=== PATIENT | female | born 1940 | race Caucasian/White ===

== ENCOUNTER 2017-09-07 12:24 | Inpatient (IN) | payer OTHER, MEDICAID ==
[2017-09-07] VITALS (8 sets, daily range): BP systolic 88–175; BP diastolic 54–116
[~2017-09-07] VITALS: Ht 149.9 cm; Wt 106.1 kg
[2017-09-07 13:30] LABS: BASOPHIL % 0.3 % (0-2); PLATELET COUNT 229 x10^3mcL (130-400); RED CELL DISTRIBUTION WIDTH 15.2 % (11.5-14.5)
[2017-09-07 13:44] LABS: UA SPECIFIC GRAVITY 1.025 (1.005-1.035); microscopic required? YES; urine erythrocyte 2+ (NEGATIVE)
[2017-09-07 13:44] LABS: CALCIUM 8.7 mg/dL (8.5-10.1); CARBON DIOXIDE 29.7 mmol/L (21-32); CHLORIDE SERUM 103 mmol/L (98-107); GLUCOSE SERUM 192 mg/dL (74-106); POTASSIUM SERUM 3.8 mmol/L (3.5-5.1); SODIUM SERUM 142 mmol/L (136-145)
[2017-09-07 13:49] LABS: ALBUMIN 3.7 g/dL (3.4-5.0); ALKALINE PHOSPHATASE 101 U/L (46-116); ALT/SGPT 50 U/L (14-59); AST/SGOT 38 U/L (15-37); TOTAL PROTEIN, SERUM 7.5 g/dL (6.4-8.2)
[2017-09-07] MEDS ORDERED: GOOD SENSE ASPI81 M3 PO (13:50)
[2017-09-07] MEDS ORDERED: LEXAPRO20 MG PO (13:50)
[2017-09-07] MEDS ORDERED: LOSARTAN POTASS50 M1 PO (13:50)
[2017-09-07] MEDS ORDERED: COMPLEX B1001 TER PO (13:51)
[2017-09-07] MEDS ORDERED: CILOSTAZOL100 M1 PO (13:51)
[2017-09-07] MEDS ORDERED: LIPITOR40 MG PO (13:52)
[2017-09-07] MEDS ORDERED: CALCIUM (13:52)
[2017-09-07] MEDS ORDERED: DONEPEZIL HYDRO10 M2 PO (13:52)
[2017-09-07] MEDS ORDERED: FISH OIL + D31 EACH PO (13:52)
[2017-09-07] MEDS ORDERED: RANITIDINE HCL300 MG PO (13:53)
[2017-09-07] MEDS ORDERED: TRAZODONE50 M1 PO (13:53)
[2017-09-07] MEDS ORDERED: ATENOLOL50 MG PO (13:53)
[2017-09-07 15:56] LABS: MAGNESIUM 2.1 mg/dL (1.8-2.4); PHOSPHOROUS 5.2 mg/dL (2.5-4.9)
[2017-09-07 16:32] LABS: CHOLESTEROL/HDL RATIO 2.3
[2017-09-08] VITALS (15 sets, daily range): BP systolic 63–123; BP diastolic 22–84
[2017-09-08 05:21] LABS: BASOPHIL % 0.4 % (0-2); PLATELET COUNT 190 x10^3mcL (130-400)
[2017-09-08 05:44] LABS: RED CELL DISTRIBUTION WIDTH 15.6 % (11.5-14.5)
[2017-09-08 06:20] LABS: CALCIUM 8.1 mg/dL (8.5-10.1); CARBON DIOXIDE 26.3 mmol/L (21-32); CHLORIDE SERUM 105 mmol/L (98-107); CREATININE SERUM 1.3 mg/dL (0.6-1.0); GLUCOSE SERUM 134 mg/dL (74-106); MAGNESIUM 1.7 mg/dL (1.8-2.4); PHOSPHOROUS 4.2 mg/dL (2.5-4.9); POTASSIUM SERUM 3.8 mmol/L (3.5-5.1); SODIUM SERUM 141 mmol/L (136-145)
[2017-09-08 06:27] LABS: T3 TOTAL 1.04 ng/mL
[2017-09-08 06:32] LABS: FREE T4 1.15 ng/dL (0.76-1.46); FREE THYROXINE INDEX 3.2 ug/dL (1.4-4.5); T4(THYROXINE) 8.7 ug/dL (4.7-13.3)
[2017-09-09] VITALS (22 sets, daily range): BP systolic 99–152; BP diastolic 56–88
[2017-09-09 05:40] LABS: PLATELET COUNT 172 x10^3mcL (130-400)
[2017-09-09 05:55] LABS: CALCIUM 8.6 mg/dL (8.5-10.1); CARBON DIOXIDE 23.7 mmol/L (21-32); CHLORIDE SERUM 105 mmol/L (98-107); CREATININE SERUM 1.2 mg/dL (0.6-1.0); GLUCOSE SERUM 211 mg/dL (74-106); MAGNESIUM 2.3 mg/dL (1.8-2.4); PHOSPHOROUS 3.3 mg/dL (2.5-4.9); POTASSIUM SERUM 3.5 mmol/L (3.5-5.1); SODIUM SERUM 139 mmol/L (136-145)
[2017-09-09 06:07] LABS: BASOPHIL % 0 % (0-2); RED CELL DISTRIBUTION WIDTH 15.4 % (11.5-14.5)
[2017-09-10] VITALS (15 sets, daily range): BP systolic 97–160; BP diastolic 59–100
[2017-09-10 06:06] LABS: BASOPHIL % 0.3 % (0-2); PLATELET COUNT 190 x10^3mcL (130-400)
[2017-09-10 06:10] LABS: CALCIUM 8.3 mg/dL (8.5-10.1); CARBON DIOXIDE 29.4 mmol/L (21-32); CHLORIDE SERUM 108 mmol/L (98-107); GLUCOSE SERUM 194 mg/dL (74-106); MAGNESIUM 2.3 mg/dL (1.8-2.4); PHOSPHOROUS 2.6 mg/dL (2.5-4.9); SODIUM SERUM 143 mmol/L (136-145)
[2017-09-10 06:13] LABS: RED CELL DISTRIBUTION WIDTH 15.6 % (11.5-14.5)
[2017-09-11] VITALS (12 sets, daily range): BP systolic 107–152; BP diastolic 63–90; Ht 149.9 cm; Wt 106.1 kg
[2017-09-11 05:56] LABS: BASOPHIL % 0.3 % (0-2); PLATELET COUNT 205 x10^3mcL (130-400)
[2017-09-11 05:57] LABS: RED CELL DISTRIBUTION WIDTH 15.6 % (11.5-14.5)
[2017-09-11 06:13] LABS: CALCIUM 8.3 mg/dL (8.5-10.1); CARBON DIOXIDE 29.2 mmol/L (21-32); CHLORIDE SERUM 110 mmol/L (98-107); CREATININE SERUM 0.8 mg/dL (0.6-1.0); GLUCOSE SERUM 120 mg/dL (74-106); MAGNESIUM 2.3 mg/dL (1.8-2.4); PHOSPHOROUS 3.5 mg/dL (2.5-4.9); POTASSIUM SERUM 4.4 mmol/L (3.5-5.1); SODIUM SERUM 144 mmol/L (136-145)
[2017-09-12 06:31] VITALS: BP 136/72
[2017-09-12 06:31] LABS: BASOPHIL % 0.2 % (0-2); PLATELET COUNT 186 x10^3mcL (130-400)
[2017-09-12 06:34] LABS: CALCIUM 7.9 mg/dL (8.5-10.1); CARBON DIOXIDE 33.4 mmol/L (21-32); CHLORIDE SERUM 107 mmol/L (98-107); CREATININE SERUM 0.9 mg/dL (0.6-1.0); GLUCOSE SERUM 126 mg/dL (74-106); MAGNESIUM 2.6 mg/dL (1.8-2.4); PHOSPHOROUS 3.3 mg/dL (2.5-4.9); POTASSIUM SERUM 4.3 mmol/L (3.5-5.1); SODIUM SERUM 143 mmol/L (136-145)
[2017-09-12 06:56] LABS: RED CELL DISTRIBUTION WIDTH 15.4 % (11.5-14.5)
[2017-09-12 09:44] VITALS: BP 139/78
[2017-09-12 12:40] VITALS: BP 146/73
[2017-09-12 17:40] VITALS: BP 138/81
[2017-09-12 20:10] VITALS: BP 122/65
[2017-09-13 04:10] VITALS: BP 149/85
[2017-09-13 08:31] LABS: BASOPHIL % 0.2 % (0-2); PLATELET COUNT 202 x10^3mcL (130-400)
[2017-09-13 08:35] LABS: RED CELL DISTRIBUTION WIDTH 15.3 % (11.5-14.5)
[2017-09-13 08:48] LABS: CARBON DIOXIDE 33.1 mmol/L (21-32); CHLORIDE SERUM 104 mmol/L (98-107); CREATININE SERUM 0.9 mg/dL (0.6-1.0); GLUCOSE SERUM 145 mg/dL (74-106); MAGNESIUM 2.5 mg/dL (1.8-2.4); POTASSIUM SERUM 4.6 mmol/L (3.5-5.1); SODIUM SERUM 141 mmol/L (136-145)
[2017-09-13 10:20] VITALS: BP 117/62
[2017-09-13 14:11] VITALS: BP 125/76
[2017-09-13] MEDS ORDERED: LAC PO (14:13)
[2017-09-13 14:46] VITALS: BP 125/76
[2017-09-13 17:15] VITALS: BP 119/69
[2017-09-13 20:52] VITALS: BP 132/83
[2017-09-14 04:55] VITALS: BP 139/79
[2017-09-14 07:32] LABS: CARBON DIOXIDE 33.6 mmol/L (21-32); CHLORIDE SERUM 105 mmol/L (98-107); CREATININE SERUM 0.9 mg/dL (0.6-1.0); GLUCOSE SERUM 132 mg/dL (74-106); POTASSIUM SERUM 4.4 mmol/L (3.5-5.1); SODIUM SERUM 142 mmol/L (136-145)
[2017-09-14 07:34] LABS: BASOPHIL % 0.5 % (0-2); PLATELET COUNT 193 x10^3mcL (130-400)
[2017-09-14 07:42] LABS: RED CELL DISTRIBUTION WIDTH 15.3 % (11.5-14.5)
[2017-09-14 09:53] VITALS: BP 144/84
[2017-09-14 16:50] VITALS: BP 98/68
[2017-09-14 21:48] VITALS: BP 153/88
[2017-09-15 04:40] VITALS: BP 139/87
[2017-09-15 07:57] LABS: PLATELET COUNT 202 x10^3mcL (130-400)
[2017-09-15 08:18] LABS: CALCIUM 7.9 mg/dL (8.5-10.1); CARBON DIOXIDE 34.8 mmol/L (21-32); CHLORIDE SERUM 102 mmol/L (98-107); CREATININE SERUM 0.8 mg/dL (0.6-1.0); GLUCOSE SERUM 114 mg/dL (74-106); POTASSIUM SERUM 4.4 mmol/L (3.5-5.1); SODIUM SERUM 136 mmol/L (136-145)
[2017-09-15 08:19] LABS: BASOPHIL % 0 % (0-2)
[2017-09-15 10:02] VITALS: BP 123/72
[2017-09-15 18:24] VITALS: BP 123/70
[2017-09-15 21:02] VITALS: BP 130/66
[2017-09-16 05:27] VITALS: BP 124/75
[2017-09-16 06:33] LABS: PLATELET COUNT 205 x10^3mcL (130-400); RED CELL DISTRIBUTION WIDTH 14.1 % (11.5-14.5)
[2017-09-16 06:47] LABS: CALCIUM 7.7 mg/dL (8.5-10.1); CARBON DIOXIDE 32.9 mmol/L (21-32); CHLORIDE SERUM 103 mmol/L (98-107); CREATININE SERUM 0.9 mg/dL (0.6-1.0); GLUCOSE SERUM 134 mg/dL (74-106); MAGNESIUM 2.2 mg/dL (1.8-2.4); PHOSPHOROUS 4.1 mg/dL (2.5-4.9); POTASSIUM SERUM 4.6 mmol/L (3.5-5.1); SODIUM SERUM 141 mmol/L (136-145)
[2017-09-16 09:28] VITALS: BP 124/62
[2017-09-16 17:22] VITALS: BP 109/51
[2017-09-16 21:55] VITALS: BP 125/65
[2017-09-17 05:57] VITALS: BP 120/62
[2017-09-17 07:21] LABS: BASOPHIL % 0.4 % (0-2); PLATELET COUNT 225 x10^3mcL (130-400)
[2017-09-17 07:30] LABS: CALCIUM 8.4 mg/dL (8.5-10.1); CHLORIDE SERUM 102 mmol/L (98-107); CREATININE SERUM 0.9 mg/dL (0.6-1.0); GLUCOSE SERUM 134 mg/dL (74-106); MAGNESIUM 2.3 mg/dL (1.8-2.4); PHOSPHOROUS 4.1 mg/dL (2.5-4.9); POTASSIUM SERUM 4.5 mmol/L (3.5-5.1); SODIUM SERUM 140 mmol/L (136-145)
[2017-09-17 09:58] VITALS: BP 97/61
[2017-09-17 17:58] VITALS: BP 100/57
[2017-09-17 20:56] VITALS: BP 99/56
[2017-09-18 05:54] VITALS: BP 108/69
[2017-09-18 06:27] LABS: CALCIUM 8.4 mg/dL (8.5-10.1); CARBON DIOXIDE 33.9 mmol/L (21-32); CHLORIDE SERUM 100 mmol/L (98-107); GLUCOSE SERUM 150 mg/dL (74-106); PHOSPHOROUS 4.5 mg/dL (2.5-4.9); PLATELET COUNT 211 x10^3mcL (130-400); POTASSIUM SERUM 4.3 mmol/L (3.5-5.1); SODIUM SERUM 141 mmol/L (136-145)
[2017-09-18 06:30] LABS: BASOPHIL % 0 % (0-2); RED CELL DISTRIBUTION WIDTH 15.4 % (11.5-14.5)
[2017-09-18 09:00] VITALS: BP 144/77
[2017-09-18] MEDS ORDERED: VENTOLIN H0.09 MG/A1 INH (10:37)
[2017-09-18] MEDS ORDERED: FUROSEMIDE20 MG PO (10:37)
[2017-09-18] MEDS ORDERED: OSCD PO (10:37)
[2017-09-18 14:35] VITALS: BP 125/76
[2017-09-18 14:36] VITALS: BP 125/76
== END 2017-09-18 16:27 | disposition home health service (06) | DRG 208 ==
LOC: ED 12:24 → IC 14:35 → DU 09-11 17:22 → MU 09-14 07:46
PROVIDERS: Emergency Medicine; Family Medicine; Student in an Organized Health Care Education/Training Program
PROC: 5A1945Z Respiratory Ventilation, 24-96 Consecutive Hours (ICD-10-PCS; principal; 2017-09-07)
PROC: 0BH17EZ Insertion of Endotracheal Airway into Trachea, Via Natural or Artificial Opening (ICD-10-PCS; 2017-09-07)
PROC: 05HM33Z Insertion of Infusion Device into Right Internal Jugular Vein, Percutaneous Approach (ICD-10-PCS; 2017-09-07)
DX: J96.01 Acute respiratory failure with hypoxia (principal); J69.0 Pneumonitis due to inhalation of food and vomit; G93.41 Metabolic encephalopathy; N17.0 Acute kidney failure with tubular necrosis; N39.0 Urinary tract infection, site not specified; Z68.42 Body mass index [BMI] 45.0-49.9, adult; I11.9 Hypertensive heart disease without heart failure; K21.9 Gastro-esophageal reflux disease without esophagitis; G47.30 Sleep apnea, unspecified; R31.29 Other microscopic hematuria; J44.9 Chronic obstructive pulmonary disease, unspecified; E83.51 Hypocalcemia; E83.41 Hypermagnesemia; R73.03 Prediabetes; R80.9 Proteinuria, unspecified; D64.9 Anemia, unspecified; E66.01 Morbid (severe) obesity due to excess calories; Z85.42 Personal history of malignant neoplasm of other parts of uterus; Z90.710 Acquired absence of both cervix and uterus
CPT/HCPCS: 31500; 36556; 36600; 83880; 84439; 87804; 97110-GP; 97116-GP; 97530-GP; A4628; C9113; J1200; J1642; J1644; J1940; J1956; J2001; J2250; J2270; J2405; J2543; J2704; J2920; J3010; J3370; J3475; J3490; J7030; J7040; J7620; J7633; Q0092

== ENCOUNTER 2019-11-01 16:34 | Emergency (ER) | payer OTHER, MEDICAID ==
[~2019-11-01] VITALS: Ht 144.8 cm; Wt 98.4 kg
[~2019-11-01 16:34] MED LIST: ATENOLOL50 MG PO; CALCIUM; CILOSTAZOL100 M1 PO; COMPLEX B1001 TER PO; DONEPEZIL HYDRO10 M2 PO; FISH OIL + D31 EACH PO; FUROSEMIDE20 MG PO; GOOD SENSE ASPI81 M3 PO; LAC PO; LEXAPRO20 MG PO; LIPITOR40 MG PO; LOSARTAN POTASS50 M1 PO; OSCD PO; RANITIDINE HCL300 MG PO; TRAZODONE50 M1 PO; VENTOLIN H0.09 MG/A1 INH
[2019-11-01 18:17] VITALS: BP 145/66
== END 2019-11-01 18:17 | disposition home or self-care (01) ==
LOC: ED 16:34
DX: S01.01XA Laceration without foreign body of scalp, initial encounter (principal); I10 Essential (primary) hypertension; E78.00 Pure hypercholesterolemia, unspecified; Z90.710 Acquired absence of both cervix and uterus; Z98.890 Other specified postprocedural states; W18.40XA Slipping, tripping and stumbling without falling, unspecified, initial encounter; Y93.89 Activity, other specified; Y92.89 Other specified places as the place of occurrence of the external cause; Y99.8 Other external cause status

== ENCOUNTER 2019-11-01 22:17 | Emergency (ER) | payer OTHER, MEDICAID ==
[~2019-11-01] VITALS: Ht 149.9 cm; Wt 99.3 kg
[2019-11-01 22:27] VITALS: Ht 149.9 cm; Wt 99.3 kg
[2019-11-02 02:26] VITALS: BP 132/84
== END 2019-11-02 02:26 | disposition home or self-care (01) ==
LOC: ED 22:17
DX: S01.01XA Laceration without foreign body of scalp, initial encounter (principal); I10 Essential (primary) hypertension; E78.00 Pure hypercholesterolemia, unspecified; W18.39XA Other fall on same level, initial encounter; Y93.89 Activity, other specified; Y92.89 Other specified places as the place of occurrence of the external cause; Y99.8 Other external cause status